=== PATIENT | male | born 1960 ===

== ENCOUNTER 2023-03-06 10:45 | Inpatient (IN) | payer OTHER ==
[~2023-03-06] VITALS: Ht 172.7 cm; Wt 78.9 kg
[2023-03-06 14:18] LABS: HEMATOCRIT 43.1 % (39.0-48.0); HEMOGLOBIN 14.6 g/dL (13-16.00); MEAN CELL VOLUME 92.8 fL (80.0-100.00); MEAN CORPUSCULAR HEMOGLOBIN 31.5 pg (27.00-32.0); MEAN CORPUSCULAR HGB CONC 33.9 g/dl (32.0-36.0); PLATELET COUNT 271 K/uL (150-450); RED BLOOD COUNT 4.65 M/uL (4.00-6.00); RED CELL DISTRIBUTION WIDTH 13.6 % (11.5-14.5)
[2023-03-06 14:18] LABS: URINE APPEARANCE Clear; URINE BILIRRUBIN Negative (NEGATIVE); URINE BLOOD Trace; URINE COLOR Yellow; URINE GLUCOSE Negative (NEGATIVE); URINE LEUKOCYTE Trace; URINE NITRATE Negative; URINE PROTEIN Negative (NEGATIVE); URINE UROBILINOGEN 0.2 E.U./dl
[2023-03-06 14:21] LABS: URINE EPITHELIAL CELLS 2.3 uL (0.0-38.8); URINE RBC 2.8 uL (0.0-20.8); URINE WBC 11.5 uL (0.0-23.2)
[2023-03-06 14:25] LABS: URINE BACTERIA 3.7 uL (0.0-1933)
[2023-03-06 14:36] LABS: INR 1.09; PARTIAL THROMBOPLASTIN TIME 29.6 SECONDS (22.0-34.0); PROTHROMBIN TIME 11.4 SECONDS (9.0-11.5)
[2023-03-06 14:49] LABS: CREATININE SERUM 0.79 mg/dL (0.70-1.30); GFR 99.71; POTASSIUM 4.23 mEq/L (3.5-5.1)
[2023-03-06] MEDS ORDERED: COZAAR25 MG PO (15:37)
[2023-03-06] MEDS ORDERED: ZOLO PO (15:38)
[2023-03-12 16:16] LABS: HEMATOCRIT 34.1 % (39.0-48.0); HEMOGLOBIN 11.3 g/dL (13-16.00); MEAN CELL VOLUME 93.5 fL (80.0-100.00); MEAN CORPUSCULAR HEMOGLOBIN 31.1 pg (27.00-32.0); MEAN CORPUSCULAR HGB CONC 33.2 g/dl (32.0-36.0); PLATELET COUNT 244 K/uL (150-450); RED BLOOD COUNT 3.64 M/uL (4.00-6.00); RED CELL DISTRIBUTION WIDTH 13.2 % (11.5-14.5)
[2023-03-13 08:35] LABS: HEMATOCRIT 33.7 % (39.0-48.0); HEMOGLOBIN 11.5 g/dL (13-16.00); MEAN CELL VOLUME 94.6 fL (80.0-100.00); MEAN CORPUSCULAR HEMOGLOBIN 32.4 pg (27.00-32.0); MEAN CORPUSCULAR HGB CONC 34.2 g/dl (32.0-36.0); PLATELET COUNT 243 K/uL (150-450); RED BLOOD COUNT 3.56 M/uL (4.00-6.00); RED CELL DISTRIBUTION WIDTH 13.1 % (11.5-14.5)
[2023-03-13 09:02] LABS: CREATININE SERUM 0.7 mg/dL (0.70-1.30); GFR 114.65; PHOSPHOROUS 2.5 mg/dL (2.5-4.9); POTASSIUM 4.01 mEq/L (3.5-5.1)
== END 2023-03-13 10:43 | disposition home or self-care (01) | DRG 708 ==
LOC: O/R 03-12 06:33 → SURH 03-12 07:00
PROVIDERS: ADMIT Urology; ATTEND Urology
PROC: 07BC4ZZ Excision of Pelvis Lymphatic, Percutaneous Endoscopic Approach (ICD-10-PCS; 2023-03-12)
PROC: 8E0W4CZ Robotic Assisted Procedure of Trunk Region, Percutaneous Endoscopic Approach (ICD-10-PCS; 2023-03-12)
PROC: 0VT04ZZ Resection of Prostate, Percutaneous Endoscopic Approach (ICD-10-PCS; principal; 2023-03-12 07:00)
DX: C61 Malignant neoplasm of prostate (principal); Z20.822 Contact with and (suspected) exposure to COVID-19
CPT/HCPCS: 55866; 38571; S2900